=== PATIENT | female | born 1980 | race American Indian/Alaskan Native ===

== ENCOUNTER 2016-10-28 12:10 | Inpatient (IN) | payer SELFPAY ==
--- NOTE | 2016-10-28 13:41 | History and Physical Report ---
History of Present Illness Date of examination: 10/28/16 Chief complaint: Painful contractions History of present illness: 36-year-old 003 at 40+ weeks presents in active labor, she is a [facility] patient. course complicated by a late arrival from [place], she [place] arrived in the country on 09/13/2016. Per patient, course unremarkable. It appears she has not had a 1 hr GTT; she denies a family history of diabetes and she has had no gestational diabetes with her prior pregnancies. She appears to be hepatitis B surface antigen positive, no HIV testing found. 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 denies: chlamydia, gonorrhea, hepatitis C, herpes, syphilis, trichomonas Social history: , full code. denies: smoking, alcohol abuse, prescription drug abuse, IV drug use - Obstetrical History Expected Date of Delivery: 10/22/16 Actual Gestation: 40 Week(s) 6 Day(s) : 4 Para: 3 Medications and Allergies Allergies Allergy/AdvReac Type Severity Reaction Status Date / Time No Known Allergies Allergy Unverified 10/28/16 13:31 Review of Systems Constitutional: no weight gain, no fever, no chills, no sweats, no weakness Cardiovascular: no chest pain, no syncope, no lightheadedness, no shortness of breath, no dyspnea on exertion, no high blood pressure Respiratory: no cough, no cough with sputum, no shortness of breath, no dyspnea on exertion Gastrointestinal: no nausea, no vomiting Genitourinary: no vaginal bleeding, no vaginal discharge, no leakage of fluid - Vital Signs Vital signs: Vital Signs Temp Pulse Resp BP Pulse Ox 98.5 F 102 H 16 110/66 98 10/28/16 12:27 10/28/16 12:27 10/28/16 12:27 10/28/16 12:27 10/28/16 12:27 Temp Pulse Resp BP Pulse Ox 98.5 F 242 H 16 110/66 82 L 10/28/16 12:27 10/28/16 13:30 10/28/16 12:27 10/28/16 12:27 10/28/16 13:30 - Physical Exam Cardiovascular: Regular rate, Normal S1, Normal S2 Lungs: Positive: Clear to auscultation, Normal air movement Abdomen: Positive: normal appearance, soft. Negative: distention, tenderness, guarding, rigidity Genitourinary (Female): Positive: normal external genitalia Uterus: Positive: enlarged (EFW ~ 3600) Adnexa: both: normal Extremities: Positive: normal - Obstetrical FHR: category 1 Cervical Dilatation: 6 station: -2 Results All other labs normal. Assessment and Plan A: 36-year-old 003 at 40+6 weeks in active labor -Category 1 tracing P: -Admit -Obtain HIV and hep B panel now -Obtain routine labor labs -Epidural when necessary -Anticipate normal vaginal delivery - Patient Problems (1) 40 weeks gestation of Current Visit: Yes Status: Acute (2) Active labor at term Current Visit: Yes Status: Acute
[2016-10-28] MEDS ORDERED: POLYCILLIN/NS 2 GM/100 ML 2 GM/100 ML BAG IV ONE (13:47)
[2016-10-28] MEDS ORDERED: BRETHINE SUB-Q PRN (13:47)
[2016-10-28] MEDS ORDERED: MINERAL OIL PO PRN (13:47)
[2016-10-28] MEDS ORDERED: XYLOCAINE 2% INFILTRATI ONE (13:47)
[2016-10-28] MEDS ORDERED: ePHEDrine SULFATE IV PRN (13:47)
[2016-10-28] MEDS ORDERED: ZOFRAN IV PRN (13:47)
[2016-10-28] MEDS ORDERED: BRETHINE IVP PRN (13:47)
[2016-10-28] MEDS ORDERED: SUBLIMAZE IV PRN (13:47)
[2016-10-28] MEDS ORDERED: PITOCin/NS 20 UNIT/1000ML DRIP 20 UNITS/1,000 ML BAG IV SCH ×3 (14:00→21:00)
[2016-10-28] MEDS ORDERED: PITOCin/NS 30 UNIT/500ML 30 UNITS/500 ML BAG IV SCH ×2 (14:00)
[2016-10-28] MEDS ORDERED: LACTATED RINGERS 1,000 ML IV SCH ×2 (14:00→18:00)
[2016-10-28 14:32] LABS: Hematocrit 34.9 % (30.3-42.9); Hemoglobin 11.2 gm/dl (10.1-14.3); Mean Corpuscular HGB Conc 32 % (30-34); Mean Corpuscular Hemoglobin 27 pg (28-32); Mean Corpuscular Volume 84 fl (79-97); Platelet Count 218 K/mm3 (140-440); Red Blood Count 4.16 M/mm3 (3.65-5.03); Red Cell Distribution Width 15.3 % (13.2-15.2); White Blood Count 10.5 K/mm3 (4.5-11.0)
[2016-10-28 14:48] LABS: HIV-1 Antigen p24 Non React (Non React); HIVR-1/2 Ab Non React (Non React)
--- NOTE | 2016-10-28 17:37 | Progress Note ---
Assessment and Plan A: 36-year-old 003 at 40+6 weeks in active labor -Category 1 tracing P: -Sono now placed for weight -If 4000 g, we'll consider other options with the patient as she did not have a diabetes screening - Patient Problems (1) 40 weeks gestation of Current Visit: Yes Status: Acute (2) Active labor at term Current Visit: Yes Status: Acute Subjective - Subjective Date of service: 10/28/16 Interval history: Patient seen and examined, she has had no significant change in her exam since admission. Remains at 6-7 cm and -2-3 station She still declines an epidural Patient reports: contractions Objective - Vital Signs Vital Signs: Vital Signs - 12hr 10/28/16 10/28/16 10/28/16 12:27 12:52 12:57 Temperature 98.5 F Pulse Rate 93 H 93 H Pulse Rate [ 102 H Right From Monitor] Respiratory 16 Rate Blood Pressure Blood Pressure 110/66 [Left Arm] O2 Sat by Pulse 98 98 97 Oximetry 10/28/16 10/28/16 10/28/16 13:03 13:04 13:05 Temperature Pulse Rate 94 H 67 119 H Pulse Rate [ Right From Monitor] Respiratory Rate Blood Pressure Blood Pressure [Left Arm] O2 Sat by Pulse 99 82 L 82 L Oximetry 10/28/16 10/28/16 10/28/16 13:07 13:08 13:09 Temperature Pulse Rate 271 H 227 H 2 L Pulse Rate [ Right From Monitor] Respiratory Rate Blood Pressure Blood Pressure [Left Arm] O2 Sat by Pulse 82 L 82 L 82 L Oximetry 10/28/16 10/28/16 10/28/16 13:10 13:11 13:18 Temperature Pulse Rate 240 H 240 H 242 H Pulse Rate [ Right From Monitor] Respiratory Rate Blood Pressure Blood Pressure [Left Arm] O2 Sat by Pulse 82 L 82 L 82 L Oximetry 10/28/16 10/28/16 10/28/16 13:23 13:24 13:25 Temperature Pulse Rate 214 H 202 H 257 H Pulse Rate [ Right From Monitor] Respiratory Rate Blood Pressure Blood Pressure [Left Arm] O2 Sat by Pulse 82 L 82 L 82 L Oximetry 10/28/16 10/28/16 10/28/16 13:27 13:28 13:29 Temperature Pulse Rate 214 H 266 H 202 H Pulse Rate [ Right From Monitor] Respiratory Rate Blood Pressure Blood Pressure [Left Arm] O2 Sat by Pulse 82 L 82 L 82 L Oximetry 10/28/16 10/28/16 10/28/16 13:30 13:32 13:33 Temperature Pulse Rate 242 H 234 H 234 H Pulse Rate [ Right From Monitor] Respiratory Rate Blood Pressure Blood Pressure [Left Arm] O2 Sat by Pulse 82 L 82 L 82 L Oximetry 10/28/16 10/28/16 10/28/16 13:35 13:36 13:37 Temperature Pulse Rate 250 H 227 H 271 H Pulse Rate [ Right From Monitor] Respiratory Rate Blood Pressure Blood Pressure [Left Arm] O2 Sat by Pulse 82 L 82 L 82 L Oximetry 10/28/16 10/28/16 10/28/16 15:06 15:08 15:12 Temperature Pulse Rate 536 H 102 H 91 H Pulse Rate [ Right From Monitor] Respiratory Rate Blood Pressure 90/58 Blood Pressure [Left Arm] O2 Sat by Pulse 82 L 95 Oximetry 10/28/16 15:17 Temperature Pulse Rate 108 H Pulse Rate [ Right From Monitor] Respiratory Rate Blood Pressure Blood Pressure [Left Arm] O2 Sat by Pulse 97 Oximetry - Exam Abdomen: Present: normal appearance, soft. Absent: distention, tenderness, guarding, rigidity Uterus: Absent: tenderness FHR: category 1 Cervical Dilatation: 6.5 station: -3 - Labs Labs: Abnormal Labs 10/28/16 14:15 MCH 27 L RDW 15.3 H Laboratory Results - last 24 hr 10/28/16 10/28/16 14:10 14:15 WBC 10.5 RBC 4.16 Hgb 11.2 Hct 34.9 MCV 84 MCH 27 L MCHC 32 RDW 15.3 H Plt Count 218 HIV 1&2 Antibody Rapid Non react HIV P24 Antigen Non react Blood Type O POSITIVE Antibody Screen TNR CICI Antibody Screen Negative
[2016-10-28] MEDS ORDERED: POLYCILLIN/NS 1 GM/50 ML 1 GM/50 ML BAG IV SCH (17:48)
[2016-10-28] MEDS ORDERED: BICITRA PO ONE (17:59)
[2016-10-28] MEDS ORDERED: PEPCID IV ONE (17:59)
[2016-10-28] MEDS ORDERED: REGLAN IV ONE (17:59)
[2016-10-28] MEDS ORDERED: EMLA TP PRN (17:59)
[2016-10-28] MEDS ORDERED: ANCEF/STERILE WATER 2 GM/20 ML 2 GM/20 ML SYRINGE IV NR (18:00)
--- NOTE | 2016-10-28 18:04 | Event Note ---
Date: 10/28/16 Patient is status post growth scan. Her estimated weight is 9 lbs. 13 oz. or ~ 4400 g. In view of current arrest of dilation and descent for 4 hours , late presentation with initial care in [facility] [place] with no GTT performed, feel it is prudent to proceed with primary LTCS. The patient has been consented
--- NOTE | 2016-10-28 18:12 | Anesthesia Consultation ---
Anesthesia Consult and Med Hx Date of service: 10/28/16 - Airway Anesthetic Teeth Evaluation: Good ROM Head & Neck: Adequate Mental/Hyoid Distance: Adequate Mallampati Class: Class II Intubation Access Assessment: Probably Good - Pulmonary Exam CTA: Yes - Cardiac Exam Cardiac Exam: RRR - Pre-Operative Health Status ASA Pre-Surgery Classification: ASA2, Emergency Proposed Anesthetic Plan: Epidural, Spinal - Pulmonary Hx Asthma: No COPD: No Hx Pneumonia: No - Cardiovascular System Hx Hypertension: No - Central Nervous System Hx Seizures: No Hx Psychiatric Problems: No - Endocrine Hx Renal Disease: No Hx End Stage Renal Disease: No Hx Hypothyroidism: No Hx Hyperthyroidism: No - Hematic Hx Anemia: No Hx Sickle Cell Disease: No - Other Systems Hx Alcohol Use: No
--- NOTE | 2016-10-28 18:13 | Anesthesia Day of Surgery ---
Anesthesia Day of Surgery - Day of Surgery Patient Examined: Yes Patient H&P Reviewed: Yes Patient is NPO: No (FSP)
[2016-10-28] MEDS ORDERED: NEO SYNEPHRINE/NS Syringe(OR USE) IV ONE (19:00)
[2016-10-28] MEDS ORDERED: NACL 0.9% IR ONE (19:15)
[2016-10-28] MEDS ORDERED: WATER FOR IRRIG STERILE IR ONE (19:15)
[2016-10-28] MEDS ORDERED: MORPHINE ONE (19:53)
--- NOTE | 2016-10-28 20:09 | Operative Report ---
Operative Report Operative Report: DATE: 10/28/2016 PREOPERATIVE DIAGNOSIS: 36-year-old 003 at 40+6 weeks, arrest of descent, arrest of dilation, suspected macrosomia POSTOP DIAGNOSIS: Above + fibroid uterus NAME OF PROCEDURE: Primary low transverse section, myomectomy SURGEON: AURA GUZMAN MD BENEFIT DIRECTOR: [] ANESTHESIA: Combined spinal epidural EBL: 800 mL PATHOLOGY SPECIMEN: Fibroid specimens URINE OUTPUT: 1 50 mL FINDINGS: Female in cephalic presentation, time of was 19:19, infant weight was 4107 grams or 9 lbs. 1 oz., Apgars 8 and 9, 3 fibroids approximately 2 cm in size noted at hysterotomy incision otherwise normal uterus tubes and ovaries bilaterally DESCRIPTION OF PROCEDURE: After informed consent, patient was taken to the operating room where she was prepped and draped in a sterile fashion. Pfannestial incision was performed 2 cm above the pubic symphysis. This was then carried down to the underlying rectus fascia which was scored in the midline. The fascial incision was extended laterally with the use of Rucker scissors, anterior leaf was then grasped with Souleymane's elevated dissected sharply and bluntly off the underlying rectus. In a similar fashion the inferior leaf was grasped elevated dissected sharply and bluntly off the underlying rectus. The rectus was in the midline and the peritoneal cavity was entered without difficulty. After good visualization of the bladder the peritoneal layer was extended up and down; bladder blade was placed in the patient's pelvic cavity, bladder flap could not be created. A hysterotomy incision was then performed with thick meconium amniotic fluid noted. Infant in cephalic presentation was delivered without difficulty in the usual manner; cord was clamped cut and was handed over to waiting NICU staff. The placenta was then delivered intact, the uterus was then exteriorized cleared of all clots and debris. Her hysterotomy incision was inspected and 3 fibroids were noted at the edge making closure difficult. Myomectomy was performed with all 3 fibroids removed and sent to pathology. The hysterotomy incision was then closed in a running locked fashion with 0 Vicryl on a CTX; using the same suture were able to imbricate the initial layer. The uterus was then returned to the patient's pelvic cavity; the peritoneal edges were grasped with hemostats and Teresa's; irrigation was used to clear the gutters of all clots and debris. Tisseel hemostatic agent was applied copiously over the hysterotomy incision. The bladder flap was then closed in a running fashion with 3-0 Vicryl. The peritoneal layer was closed in a running fashion with 3-0 Vicryl; the rectus was reapproximated with a single [id number] stitch. The fascia was then closed in a running fashion with 0 Vicryl; the subcutaneous layer was reapproximated with a single [id number] stitch. The skin was then closed in a subcuticular manner with 4-0 Monocryl. She tolerated the procedure well lap and instrument counts were correct 2, she did receive 2 grams of Ancef prior to the procedure. She is transferred to PACU in stable condition.
[2016-10-28] MEDS ORDERED: TORADOL IV PRN (20:10)
[2016-10-28] MEDS ORDERED: NARCAN 0.4 MG/1 ML IV PRN (20:10)
[2016-10-28] MEDS ORDERED: SENOKOT PO PRN (20:10)
[2016-10-28] MEDS ORDERED: LANSINOH TP PRN (20:10)
[2016-10-28] MEDS ORDERED: TYLENOL PO PRN (20:10)
[2016-10-28] MEDS ORDERED: MYLICON PO PRN (20:10)
[2016-10-28] MEDS ORDERED: TUCKS PAD TP PRN (20:10)
[2016-10-28] MEDS ORDERED: PHENERGAN PR PRN (20:10)
[2016-10-28] MEDS ORDERED: ANUCORT-HC PR PRN (20:10)
[2016-10-28] MEDS ORDERED: MILK OF MAGNESIA PO PRN (20:10)
[2016-10-28] MEDS ORDERED: DILAUDID IV PRN (20:21)
--- NOTE | 2016-10-28 20:21 | Post Anesthesia Evaluation ---
- Post Anesthesia Evaluation Patient Participated: Yes Airway Patent: Yes Stable Respiratory Function: Yes Temp > 96.8F: Yes Pain Manageable: Yes Adequeate Hydration: Yes Anesthesia Complications: No Block Receding Appropriately: Yes
[2016-10-28] MEDS ORDERED: D5LR 1,000 ML IV SCH (21:00)
[2016-10-28] MEDS ORDERED: SODIUM CHLORIDE FLUSH SYRINGE 10 ML IV PRN (21:00)
--- NOTE | 2016-10-29 07:13 | Progress Note ---
Assessment and Plan - Patient Problems (1) Status post primary low transverse section Onset Date: 10/29/16 Current Visit: Yes Status: Resolved Plan to address problem: A: S/P LTCS - POD #1 Doing well Asymptomatic anemia - stable P: Continue RPOC Will give IV Zofran prn Anticipate discharge in 24-48hrs Subjective - Subjective Date of service: 10/29/16 Principal diagnosis: s/p C Section - POD #1 Interval history: Pt is feeling well, bleeding improved. Complains of nausea and vomiting. Patient reports: voiding normally, pain well controlled, no appetite normal, no flatus, no ambulating normally [place]: doing well, bottle feeding Objective - Vital Signs Latest vital signs: Vital Signs Temp Pulse Pulse Resp BP BP Pulse Ox 10/29/16 05:15 98.1 F 81 20 112/69 10/29/16 01:37 98 F 68 20 121/66 10/29/16 01:15 98.5 F 68 18 121/66 10/28/16 22:15 97.8 F 67 18 114/64 10/28/16 21:17 98.4 F 10/28/16 21:10 66 11 L 114/64 100 10/28/16 21:05 64 13 114/63 100 10/28/16 21:01 82 13 107/66 99 10/28/16 20:55 62 18 117/65 100 10/28/16 20:51 68 17 121/74 100 10/28/16 20:45 66 19 116/61 100 10/28/16 20:40 65 19 114/59 100 10/28/16 20:35 63 20 114/55 100 10/28/16 20:30 67 22 114/61 100 10/28/16 20:25 65 20 115/57 100 10/28/16 20:20 66 22 117/58 100 10/28/16 20:16 98.3 F 80 16 110/57 100 10/28/16 20:15 71 24 110/59 100 10/28/16 20:11 100 10/28/16 15:17 108 H 97 10/28/16 15:12 91 H 95 10/28/16 15:08 102 H 90/58 10/28/16 15:06 536 H 82 L 10/28/16 13:37 271 H 82 L 10/28/16 13:36 227 H 82 L 07/23/17 13:35 250 H 82 L 10/28/16 13:33 234 H 82 L 10/28/16 13:32 234 H 82 L 10/28/16 13:30 242 H 82 L 10/28/16 13:29 202 H 82 L 10/28/16 13:28 266 H 82 L 10/28/16 13:27 214 H 82 L 10/28/16 13:25 257 H 82 L 10/28/16 13:24 202 H 82 L 10/28/16 13:23 214 H 82 L 10/28/16 13:18 242 H 82 L 10/28/16 13:11 240 H 82 L 10/28/16 13:10 240 H 82 L 10/28/16 13:09 2 L 82 L 10/28/16 13:08 227 H 82 L 10/28/16 13:07 271 H 82 L 10/28/16 13:05 119 H 82 L 10/28/16 13:04 67 82 L 10/28/16 13:03 94 H 99 10/28/16 12:57 93 H 97 10/28/16 12:52 93 H 98 10/28/16 12:27 98.5 F 102 H 16 110/66 98 Intake and Output 10/28/16 10/29/16 10/29/16 22:59 06:59 14:59 Intake Total 2270 240 Output Total 850 780 Balance 1420 -540 Intake: IV 2150 Oral 120 240 Output: Urine 450 780 Indwelling Catheter 780 Void 0 Emesis 400 Other: Total, Intake Amount 120 240 Total, Output Amount 400 280 Estimated Blood Loss 800 - Exam Breasts: Present: deferred Cardiovascular: Present: Regular rate Lungs: Present: Clear to auscultation Abdomen: Present: normal appearance, soft Uterus: Present: normal, firm, fundal height below umbilicus Extremities: Present: normal Incision: Present: normal, dry, intact, dressed - Labs Labs: Abnormal lab results 10/28/16 Range/Units 14:15 MCH 27 L (28-32) pg RDW 15.3 H (13.2-15.2) % Laboratory Tests 10/28/16 10/28/16 14:10 14:15 WBC 10.5 RBC 4.16 Hgb 11.2 Hct 34.9 MCV 84 MCH 27 L MCHC 32 RDW 15.3 H Plt Count 218 HIV 1&2 Antibody Rapid Non react HIV P24 Antigen Non react Blood Type O POSITIVE Antibody Screen TNR CICI Antibody Screen Negative
[2016-10-29 08:25] LABS: Hematocrit 28.4 % (30.3-42.9); Hemoglobin 9.1 gm/dl (10.1-14.3)
--- NOTE | 2016-10-29 09:54 | Ultrasound Report ---
OB ULTRASOUND GREATER THAN 14 WEEKS INDICATION: Evaluate growth and anatomy. EFW and placental location. COMPARISON: None similar at this institution. TECHNIQUE: Transabdominal grayscale ultrasound with Doppler interrogation. Gestation: Bui Position: Cephalic Placenta: Anterior Placental Grade: III Heart Rate: 139 BPM BPD: 9.6 cm = 39 w 2 d HC: 35.2 cm = 41 w 1 d AC: 38.8 cm = out of range FL: 7.8 cm = 39 w 6 d HC/AC Ratio: 0.91 Cephalic Index: 81.9 Estimated Weight: 4437 grams (9 lbs. 13 oz.) Clinical age = 40 w 6 d EDC: 10/22/2016 US Gest. Age = 40 w 1 d EDC: 10/27/2016 CONCLUSION: Single, viable intrauterine gestation with ultrasound estimated age of 40 weeks and 1 day and EDC of 10/27/2016, currently in cephalic lie with details, as above. Thank you for the opportunity to participate in this patient's care.
[2016-10-29] MEDS: PRENATAL VITAMIN PO SCH (10:29)
[2016-10-29] MEDS: FEOSOL PO SCH (10:29)
[2016-10-29] MEDS ORDERED: ZOFRAN IV PRN (10:30)
[2016-10-29] MEDS: MOTRIN PO PRN (17:31)
[2016-10-29] MEDS ORDERED: M-M-R II VACCINE SUB-Q ONE (20:11)
[2016-10-30] MEDS: MOTRIN PO PRN ×4 (00:15→22:00)
[2016-10-30] MEDS ORDERED: BOOSTRIX IM ONE (06:00)
[2016-10-30] MEDS: FEOSOL PO SCH (09:30)
[2016-10-30] MEDS: PRENATAL VITAMIN PO SCH (09:30)
[2016-10-30] MEDS: PERCOCET 5/325 PO PRN ×3 (09:31→21:59)
--- NOTE | 2016-10-30 11:45 | Progress Note ---
Assessment and Plan - Patient Problems (1) Status post primary low transverse section Onset Date: 10/29/16 Current Visit: Yes Status: Resolved Plan to address problem: A: S/P LTCS - POD #2 Doing well Asymptomatic anemia - stable P: May go home tomorrow Subjective - Subjective Date of service: 10/30/16 Principal diagnosis: s/p C Section - POD #2 Interval history: Pt is feeling well, bleeding improved. Tolerating a reg diet without nausea or vomiting, ambulating and voiding without difficulty. Patient reports: appetite normal, voiding normally, pain well controlled, flatus , ambulating normally [employer]: doing well, bottle feeding Objective - Vital Signs Latest vital signs: Vital Signs Temp Pulse Resp BP 10/30/16 08:30 98.4 F 77 18 106/54 10/30/16 01:07 98.6 F 77 16 101/64 10/29/16 17:04 98.4 F 80 20 100/54 10/29/16 12:06 98.5 F 74 18 100/54 Intake and Output 10/29/16 10/30/16 10/30/16 22:59 06:59 14:59 Intake Total 200 850 Output Total 500 Balance -300 850 Intake: Oral 200 250 Intake, Free Water 600 Output: Urine 500 Void 500 Other: Total, Intake Amount 200 250 Total, Output Amount 500 # Voids Void 1 - Exam Breasts: Present: deferred Cardiovascular: Present: Regular rate Lungs: Present: Clear to auscultation Abdomen: Present: normal appearance, soft Uterus: Present: normal, firm, fundal height below umbilicus Extremities: Present: normal Incision: Present: normal, dry, intact, dressed
--- NOTE | 2016-10-30 12:26 | Discharge Summary ---
Providers - Providers Date of Admission: 10/28/16 13:47 Date of discharge: 10/31/16 Attending physician: AURA GUZMAN Primary care physician: AURA GUZMAN Hospitalization Reason for admission: active labor, IUP at term Delivery: Procedure: section, primary low transverse Episiotomy: none Laceration: none Incision: normal, dry, intact Other procedures: none complications: none Discharge diagnosis: IUP at term delivered baby: female Hospital course: Pt is a 36-year-old BF at 40+ weeks who presented in active labor, but failed to progress, and thus was delivered by C Section. Post operative course was unremarkable, and by POD #2 she was tolerating a reg diet without nausea or vomiting, ambulating and voiding without difficulty. She will therefore be discharged to home on POD #3 in stable condition. Condition at discharge: Good Disposition: DC-01 TO HOME OR SELFCARE - Discharge Diagnoses (1) Status post primary low transverse section Status: Resolved Plan - Discharge Medications Prescriptions: Ibuprofen [Motrin 600 MG tab] 600 mg PO Q8H PRN #30 tablet PRN Reason: Pain Multivitamin with Iron [Multivitamins with Iron] 1 each PO DAILY #30 tablet oxyCODONE /ACETAMINOPHEN [Percocet 5/325] 1 tab PO Q6HR PRN #30 tablet PRN Reason: Pain - Provider Discharge Summary Activity: routine, no sex for 6 weeks, no heavy lifting 4 weeks, no strenuous exercise Diet: routine Instructions: routine Additional instructions: [] Smoking cessation referral if applicable(refer to patient education folder for contact #) [] Refer to [facility] Booklet Call your doctor immediately for: * Fever > 100.5 * Heavy vaginal bleeding ( >1 pad per hour) * Severe persistent headache * Shortness of breath * Reddened, hot, painful area to leg or breast * Drainage or odor from incision. * Keep incision clean and dry at all times and follow doctor's instructions regarding bathing/showering - Follow up plan Follow up: AURA GUZMAN MD [Primary Care Provider] - 14 Days
[2016-10-31] MEDS: PERCOCET 5/325 PO PRN ×2 (05:59→13:41)
[2016-10-31] MEDS: MOTRIN PO PRN ×2 (05:59→13:39)
[2016-10-31] MEDS: FEOSOL PO SCH (13:42)
[2016-10-31] MEDS: PRENATAL VITAMIN PO SCH (13:42)
[2016-10-31 19:27] VITALS: BP 127/75
== END 2016-10-31 18:30 | disposition home or self-care (01) | DRG 766 ==
LOC: TRG 12:10 → LD 13:47 → EDBD 13:47 → OB 21:55
PROVIDERS: ADMIT Obstetrics & Gynecology Gynecology; ATTEND Obstetrics & Gynecology Gynecology
PROC: 10D00Z1 Extraction of Products of Conception, Low, Open Approach (ICD-10-PCS; principal; 2016-10-28)
PROC: 0UB90ZZ Excision of Uterus, Open Approach (ICD-10-PCS; 2016-10-28)
DX: O62.1 Secondary uterine inertia (principal); Z3A.40 40 weeks gestation of pregnancy; Z37.0 Single live birth; Z90.89 Acquired absence of other organs; O34.13 Maternal care for benign tumor of corpus uteri, third trimester; D25.9 Leiomyoma of uterus, unspecified; O90.81 Anemia of the puerperium; D64.9 Anemia, unspecified
CPT/HCPCS: 36415; 76816; 85014; 85018; 85027; 86850; 86900; 86901; 87806; 88305; 90471; 90715; 99211; A6250; C9250; G0463; J0290; J0690; J1885; J2270; J2370; J2405; J2590; J2765; J7120; J7121